=== PATIENT | male | born 1995 | race Caucasian/White ===

== ENCOUNTER → 2019-04-15 | Outpatient (CLI) | payer SELFPAY ==
--- NOTE | 2019-04-15 14:30 | RADIOLOGY REPORT (SQ) ---
EXAM DESCRIPTION: FINGER RIGHT COMPLETED DATE/TIME: 04/15/2019 2:20 pm REASON FOR STUDY: CUTANEOUS ABSCESS OF RIGHT HAND L02.511 CUTANEOUS ABSCESS OF RIGHT HAND COMPARISON: None. NUMBER OF VIEWS: Three views. TECHNIQUE: AP, lateral, and oblique images acquired of the right second finger. LIMITATIONS: None. FINDINGS: MINERALIZATION: Normal. BONES: No acute fracture or dislocation. No worrisome bone lesions. SOFT TISSUES: Soft tissue laceration along the radial aspect of the right 2nd finger. No radiopaque foreign body. No soft tissue gas. No underlying acute bony change OTHER: No other significant finding. IMPRESSION: 2nd finger soft tissue laceration. No radiopaque foreign body or soft tissue gas. COMMENT: SITE OF TRAUMA/COMPLAINT MARKED/STAMP COMPLETED: Yes TECHNICAL DOCUMENTATION: JOB ID: [id number]- All Rights Reserved Reading location - IP/workstation name: [email or web address]
== END ==
LOC: RAD 14:04
PROVIDERS: ATTEND Nurse Practitioner Family
DX: L02.511 Cutaneous abscess of right hand (principal)
CPT/HCPCS: 87070; 87077; 87205

== ENCOUNTER 2019-06-17 05:07 | Emergency (ER) | payer SELFPAY ==
[2019-06-17] MEDS ORDERED: DIPH/PERTUSS(ACELL)/TETANUS VAC/PF 0.5 ML SYR (>=10YO) IM ONE (05:24)
[2019-06-17] MEDS ORDERED: ACETAMINOPHEN 325 MG TABLET PO ONE (06:35)
--- NOTE | 2019-06-17 09:00 | ER Document Report ---
HPI - HPI Time Seen by Provider: 06/17/19 08:09 Pain Level: 4 Notes: Patient is a 24-year-old male no significant past medical history presents complaining of a sore throat over the past couple days mostly in the left side that is described as mild. Patient states that he did have a sore throat a week ago that went away, but returned couple days ago. Denies drug allergies. He is able to eat and drink without difficulty. He is urinating normally and having normal bowel movements. Patient states that he also has a puncture wound of the staple to the left anterior third finger yesterday. He still able to move his fingers without difficulties otherwise. Unknown last tetanus which patient already received today. Denies any headache, fever, URI, chest pain, palpitations, syncope, cough, shortness of breath, wheeze, dyspnea, abdominal pain, nausea/vomiting/diarrhea, urinary retention, dysuria, hematuria, loss of control of bowel or bladder, numbness/tingling, saddle anesthesia, muscle paralysis/weakness, or rash. - ROS Systems Reviewed and Negative: Yes All other systems reviewed and negative - CONSTITUTIONAL Constitutional: DENIES: Fever, Chills - EENT EENT: REPORTS: Sore Throat. DENIES: Ear Pain, Eye problems Past Medical History - Social History Smoking Status: Former Smoker Frequency of alcohol use: None Drug Abuse: None Family History: Reviewed & Not Pertinent Patient has suicidal ideation: No Patient has homicidal ideation: No Vertical Provider Document - CONSTITUTIONAL Agree With Documented VS: Yes Notes: PHYSICAL EXAMINATION: GENERAL: Well-appearing, well-nourished and in no acute distress. A&Ox4. Answers questions appropriately. Moves comfortably w/o notable distress HEAD: Atraumatic, normocephalic. EYES: Pupils equal round and reactive to light, extraocular movements intact, sclera anicteric, conjunctiva are normal. ENT: Nares patent and with clear discharge. oropharynx mild erythema without exudates. 1+ tonsilar hypertrophy with mild erythema no exudate. No palatine shift. Uvula midline. No tongue protrusion. No drooling, hoarseness, or airway compromise. Moist mucous membranes. No sinus tenderness. NECK: Normal range of motion, supple without lymphadenopathy. No rigidity/meningismus. LUNGS: Breath sounds clear to auscultation bilaterally and equal. No wheezes rales or rhonchi. No retractions HEART: Regular rate and rhythm without murmurs, rubs, gallops. ABDOMEN: Soft, nontender, nondistended abdomen. No guarding, no rebound. Normal bowel sounds present. No CVA tenderness bilaterally. No hepatosplenomegaly. NEUROLOGICAL: Normal speech, normal gait. PSYCH: Normal mood, normal affect. SKIN/MS-finger: 2 small puncture sites noted to anterior proximal 3rd finger w/o significant swelling, erythema, or purulence noted. No fluctuance. FROM. Strength 5+/5. N/v intact distal. No bony tenderness. - INFECTION CONTROL TRAVEL OUTSIDE OF THE [place] IN LAST 30 DAYS: No Course - Re-evaluation Re-evalutation: 06/17/19 Patient is an afebrile, well-hydrated, 24-year-old male who presents with a puncture wound to left third anterior finger that appears uninfected as well as strep throat. Rapid strep positive. Vitals are acceptable without significant tachycardia, tachypnea, or hypoxia. PE is otherwise unremarkable for any neurovascular compromise, obvious tendon/ligament rupture, obvious fracture/dislocation, septic joint. He is nontoxic-appearing and is tolerating p.o. without difficulty. Lungs are clear to auscultation bilaterally. No further labs or imaging warranted at this time. Low suspicion for any meningitis, sepsis, peritonsillar/pharyngeal abscess, respiratory compromise, Onur's, or other emergent systemic condition at this time. Patient is aware this condition can change from initial presentation and he needs to monitor symptoms closely. Rx for amoxicillin. Conservative measures otherwise for symptoms. Recheck with your PCM in 3-5 days. Return to the ED with any worsening/concerning symptoms otherwise as reviewed in discharge. Patient is in agreement. - Vital Signs Vital signs: Temp Pulse Resp BP Pulse Ox 97.8 F 85 16 134/82 H 98 06/17/19 05:17 06/17/19 05:17 06/17/19 05:17 06/17/19 05:17 06/17/19 05:17 Discharge - Discharge Clinical Impression: Strep throat Puncture wound of finger of left hand Qualifiers: Encounter type: initial encounter Qualified Code(s): S61.239A - Puncture wound without foreign body of unspecified finger without damage to nail, initial encounter Condition: Stable Disposition: HOME, SELF-CARE Instructions: Strep Throat ([facility]) Additional Instructions: Keep the skin clean and wash with soap and water Triple antibiotic ointment daily Epson salt soaks Maintain adequate fluid intake Take meds as directed Use new toothbrush tomorrow evening Salt water gargles, throat sprays, mouthwash rinse, peroxide gargles tylenol/ibuprofen as needed over the counter cold medication as needed for symptoms F/u: with your PCM in 3-5 days for a recheck Consider consult with ENT for ongoing/worsening symptoms Return to the ED with any fever, worsening pain, chest pain, neck pain/stiffness, shortness of breath, cough, drooling, trouble swallowing/breathing, abdominal pain, n/v/d, rash, or worsening/concerning symptoms otherwise. Prescriptions: Amoxicillin Trihydrate [Amoxil 875 mg Tablet] 1 tab PO BID #20 tablet Forms: Elevated Blood Pressure Referrals: AIDAN RAMIREZ MD [Primary Care Provider] - Follow up as needed [facility] [Provider Group] - Follow up as needed
[2019-06-17 10:33] VITALS: BP 126/69
== END 2019-06-17 10:34 | disposition home or self-care (01) ==
LOC: ER 05:07
DX: J02.0 Streptococcal pharyngitis (principal); S61.233A Puncture wound without foreign body of left middle finger without damage to nail, initial encounter; W29.8XXA Contact with other powered hand tools and household machinery, initial encounter; Y93.89 Activity, other specified; Y92.009 Unspecified place in unspecified non-institutional (private) residence as the place of occurrence of the external cause; Z87.891 Personal history of nicotine dependence
CPT/HCPCS: 87880; 90471; 90715; 99283

== ENCOUNTER 2019-07-08 09:29 | Emergency (ER) | payer SELFPAY ==
[2019-07-08] MEDS ORDERED: IBUPROFEN 800 MG TABLET PO ONE (10:38)
[2019-07-08] MEDS ORDERED: CEPHALEXIN 500 MG CAPSULE PO ONE (10:38)
[2019-07-08] MEDS ORDERED: SULFAMETHOXAZOLE/TRIMETHOPRIM 800-160 MG TABLET PO ONE (10:38)
--- NOTE | 2019-07-08 10:40 | ER Document Report ---
HPI - HPI Patient complains to provider of: Abscess Time Seen by Provider: 07/08/19 10:35 Onset/Duration: Persistent Quality of pain: Achy Pain Level: 3 Context: Patient complains of abscess to right axilla for the past 4 days. Patient states that he has squeezed on the lesion and had some small amount of purulent drainage. Patient denies any fever. Associated Symptoms: Other - Axillary abscess. denies: Fever Exacerbated by: Movement Relieved by: Denies Similar symptoms previously: Yes Recently seen / treated by doctor: No - ROS ROS below otherwise negative: Yes Systems Reviewed and Negative: Yes All other systems reviewed and negative - CONSTITUTIONAL Constitutional: DENIES: Fever, Chills - GASTROINTESTINAL Gastrointestinal: DENIES: Nausea, Patient vomiting - MUSCULOSKELETAL Musculoskeletal: REPORTS: Extremity pain - DERM Skin Color: Erythema Notes: Abscess Past Medical History - General Information source: Patient - Social History Smoking Status: Never Smoker Chew tobacco use (# tins/day): No Frequency of alcohol use: None Drug Abuse: None Occupation: [employer] Lives with: Family Family History: Reviewed & Not Pertinent Patient has suicidal ideation: No Patient has homicidal ideation: No - Medical History Medical History: Negative Surgical Hx: Negative Vertical Provider Document - CONSTITUTIONAL Agree With Documented VS: Yes Exam Limitations: No Limitations General Appearance: WD/WN, No Apparent Distress - INFECTION CONTROL TRAVEL OUTSIDE OF THE [place] IN LAST 30 DAYS: No - HEENT HEENT: Atraumatic, Normocephalic - NECK Neck: Normal Inspection - RESPIRATORY Respiratory: Breath Sounds Normal, No Respiratory Distress - CARDIOVASCULAR Cardiovascular: Regular Rate, Regular Rhythm - MUSCULOSKELETAL/EXTREMETIES Musculoskeletal/Extremeties: MAEW, Tender - Right axilla tender - NEURO Level of Consciousness: Awake, Alert, Appropriate Motor/Sensory: No Motor Deficit - DERM Integumentary: Warm, Dry, Abscess - Abscess to right axilla 1 cm diameter Course - Vital Signs Vital signs: Temp Pulse Resp BP Pulse Ox 97.2 F 103 H 16 153/77 H 100 07/08/19 10:33 07/08/19 09:38 07/08/19 10:33 07/08/19 09:38 07/08/19 10:33 Procedures - Incision and Drainage Right Arm Type: Simple Anesthetic type: 1% Lidocaine Blade size: 11 I&D procedure: Betadine prep applied Incision Method: Incision made by scalpel Amount/type of drainage: small amount of purulent drainage Discharge - Discharge Clinical Impression: Abscess, Encounter for incision and drainage procedure Condition: Stable Disposition: HOME, SELF-CARE Instructions: Abscess ([facility]), Cephalexin ([facility]), Post Incision and Drainage, Trimethoprim-Sulfa ([facility]) Additional Instructions: Return immediately for any new or worsening symptoms Followup with your primary care provider, call tomorrow to make a followup appointment Prescriptions: Sulfamethoxazole/Trimethoprim [Bactrim Ds Tablet] 1 each PO BID #20 tablet Cephalexin Monohydrate [Keflex 500 mg Capsule] 500 mg PO Q6H 5 Days capsule Naproxen [Naprosyn 250 Nmg Tablet] 1 tab PO BID #14 tablet Forms: Return to Work Referrals: AIDAN RAMIREZ MD [Primary Care Provider] - Follow up as needed
[2019-07-08 11:45] VITALS: BP 127/67
== END 2019-07-08 11:45 | disposition home or self-care (01) ==
LOC: ER 09:29
DX: L02.411 Cutaneous abscess of right axilla (principal)
CPT/HCPCS: 99283